=== PATIENT | female | born 1950 | race Caucasian/White ===

== ENCOUNTER → 2017-04-08 | Outpatient (CLI) | payer BC, MEDICARE ==
--- NOTE | 2017-04-09 10:46 | WWHP ---
DATE OF SERVICE: 04/08/2017 CHIEF COMPLAINT: The patient is here for her routine gynecologic exam and mammogram. HPI: This is a 66-year-old G2, P2 with an LMP of 1997. The patient is without gynecologic complaints and denies any postmenopausal bleeding. PAST MEDICAL HISTORY: Chronic sinus problems and history of osteopenia status post 5 years use of Fosamax in the past. MEDICATIONS: None. Allergies to PENICILLIN and NICKEL. PAST SURGICAL HISTORY: Sinus surgery in the past and colonoscopy in 2013. 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 SOCIAL HISTORY: She denies tobacco and drug use and has about 8 alcohol containing drinks per week. She is and is not seeing anybody at this time. 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 She has 2 grandchildren that live close to her. FAMILY HISTORY: Unchanged form the 2016 H&P. REVIEW OF SYSTEMS: She has gained about 5 pounds over the last year. She denies respiratory, cardiac or GI problems. She denies maltreatment. She did fall off of a ladder earlier in the year without any significant injury. She denies any other falls. : She denies any significant problems with urinary leakage. PHYSICAL EXAM: Blood pressure 133/76. Height 5 feet 7 inches. Weight 137 pounds. Temperature 98.1. Pulse 67. This is a well-developed, well-nourished white female who is alert and oriented x3 in no acute distress. HEENT is within normal limits. NECK: Supple without mass or thyromegaly. CHEST AND LUNGS: Clear to auscultation. HEART: Regular rate and rhythm. Breasts are without mass or discharge. Axillary exam is negative for adenopathy. BACK: Negative for CVA tenderness. ABDOMEN: Soft, nontender without palpable masses. PELVIC EXAM: External genitalia reveals moderate atrophy without lesions. Cervix and vagina reveals mild to moderate atrophy without lesions. There is no evidence of prolapse. The uterus is mid position, nongravid size and nontender. There are no palpable adnexal masses or tenderness. Rectovaginal exam is negative for mass or tenderness and is negative for occult blood. EXTREMITIES: Nontender. IMPRESSION: 1. A 66-year-old menopausal female with normal gynecologic exam. 2. History of osteopenia, status post 5 years use of Fosamax in the past. PLAN: 1. Pap smear was deferred since she had a normal one last year. 2. Self breast examination was discussed. 3. Mammogram will be done today. 4. Osteoporosis prevention was discussed. We have discussed getting adequate amounts of calcium, vitamin D, and regular exercise. I have recommended bone density screening and she would like to do this next year. 5. I have recommended flu shots in the fall. She states she does not get flu shots and is not interested in them. 6. She will return in one year. KEELEY
--- NOTE | 2017-04-09 11:19 | MM ---
Reason for exam: screening (asymptomatic). Last mammogram was performed 1 year ago. History: Patient is postmenopausal. Family history of breast cancer in aunt at age 55. Took hormonal contraceptives for 5 years beginning at age 19. Physical Findings: A clinical breast exam by your physician is recommended on an annual basis and results should be correlated with mammographic findings. MG 3D Screening Mammo W/Cad Bilateral CC and MLO view(s) were taken. Prior study comparison: April 02, 2016, bilateral MG screening mammo w CAD. May 23, 2013, bilateral digital screening mammo w/CAD. The breast tissue is extremely dense which could obscure a lesion on mammography. No suspicious abnormality. No significant changes when compared with prior studies. ASSESSMENT: Negative, BI-RAD 1 RECOMMENDATION: Routine screening mammogram of both breasts in 1 year.
== END | disposition home or self-care (01) ==
LOC: WWCWWP 11:07
PROVIDERS: ATTEND Obstetrics & Gynecology
DX: Z12.31 Encounter for screening mammogram for malignant neoplasm of breast (principal)
CPT/HCPCS: 77063; G0202

== ENCOUNTER 2018-01-16 07:34 | Inpatient (IN) | payer BC, MEDICARE ==
[2018-01-16] MEDS ORDERED: SODIUM CHLORIDE 0.9% 500 ML IV ONE (08:17)
--- NOTE | 2018-01-16 08:25 | ED ---
ENT HPI - General Source: patient, RN notes reviewed Mode of arrival: ambulatory Limitations: no limitations <Ihsan Sanchez - Last Filed: 01/16/18 11:36> <Shemar Philip - Last Filed: 01/16/18 11:42> - General Chief complaint: ENT Stated complaint: Sore throat Time Seen by Provider: 01/16/18 08:08 - History of Present Illness Initial comments: This is a 67-year-old female sent emergency Department chief complaint sore throat. Patient states symptoms started on Thursday progressively getting worse. She states is painful difficult to swallow. She did tell the pain is in the right side. Patient went to urgent care today sent emergency from it for further evaluation to rule out peritonsillar abscess. Patient reports fever at home and here. Patient doesn't nausea vomiting diarrhea constipation. Denies any neck stiffness but she has had a headache. (Ihsan Sanchez) - Related Data Allergies Allergy/AdvReac Type Severity Reaction Status Date / Time Penicillins Allergy Rash/Hives Verified 01/16/18 07:44 Review of Systems ROS Other: All systems not noted in ROS Statement are negative. <Ihsan Sanchez - Last Filed: 01/16/18 11:36> ROS Other: All systems not noted in ROS Statement are negative. <Shemar Philip - Last Filed: 01/16/18 11:42> ROS Statement: Those systems with pertinent positive or pertinent negative responses have been documented in the HPI. Past Medical History Past Medical History: No Reported History History of Any Multi-Drug Resistant Organisms: None Reported Additional Past Surgical History / Comment(s): Sinus sugery Past Psychological History: No Psychological Hx Reported Smoking Status: Never smoker Past Alcohol Use History: Daily Past Drug Use History: None Reported <Ihsan Sanchez - Last Filed: 01/16/18 11:36> General Exam Limitations: no limitations General appearance: alert, in no apparent distress Head exam: Present: atraumatic, normocephalic, normal inspection Eye exam: Present: normal appearance, PERRL, EOMI. Absent: scleral icterus, conjunctival injection, periorbital swelling ENT exam: Present: mucous membranes moist, TM's normal bilaterally, normal external ear exam. Absent: normal oropharynx (Edematous right tonsillar region with moderate erythema) Neck exam: Present: normal inspection, full ROM, lymphadenopathy. Absent: tenderness, meningismus Respiratory exam: Present: normal lung sounds bilaterally. Absent: respiratory distress, wheezes, rales, rhonchi, stridor Cardiovascular Exam: Present: regular rate, normal rhythm, normal heart sounds. Absent: systolic murmur, diastolic murmur, rubs, gallop, clicks <Ihsan Sanchez - Last Filed: 01/16/18 11:36> Course <Ihsan Sanchez - Last Filed: 01/16/18 11:36> <Shemar Philip - Last Filed: 01/16/18 11:42> Vital Signs 01/16/18 01/16/18 07:41 10:32 Temperature 100.8 F H Pulse Rate 105 H 91 Respiratory 18 16 Rate Blood Pressure 180/81 144/77 O2 Sat by Pulse 98 100 Oximetry - Reevaluation(s) Reevaluation #1: 01/16/18 11:41 PA supervision I personally do the [id number] examination the patient and did evaluate the CAT scan and workup. Patient does have evidence of a right peritonsillar early abscess with right parapharyngeal edema mild mass effect on the upper airway she does have difficulty with some swallowing she had one episode of chills and developed a fever last night. Her white blood cell count is within normal limits. She is ALLERGIC to penicillins. I did discuss the case with Dr. King. Patient will be admitted place an IV clindamycin, maximum doses. The patient is in agreement with this. I do agree with the assessment and plan. (Shemar Philip) Medical Decision Making - Lab Data Result diagrams: 01/16/18 08:36 01/16/18 08:36 <Ihsan Sanchez - Last Filed: 01/16/18 11:36> - Lab Data Result diagrams: 01/16/18 08:36 01/16/18 08:36 <Shemar Philip - Last Filed: 01/16/18 11:42> - Medical Decision Making 59-year-old female presented for sore throat. Patient has a peritonsillar abscess. Patient was evaluated by Dr. Philip and case discussed with on-call ENT Dr. King. Patient was started on clindamycin as she has an ALLERGY to penicillin products. Patient will be admitted for further evaluation. (Ihsan Sanchez) - Lab Data Lab Results 01/16/18 01/16/18 01/16/18 Range/Units 08:36 08:36 08:36 WBC 8.7 (3.8-10.6) k/uL RBC 4.35 (3.80-5.40) m/uL Hgb 13.1 (11.4-16.0) gm/dL Hct 38.9 (34.0-46.0) % MCV 89.5 (80.0-100.0) fL MCH 30.1 (25.0-35.0) pg MCHC 33.7 (31.0-37.0) g/dL RDW 12.9 (11.5-15.5) % Plt Count 174 (150-450) k/uL Neutrophils % 82 % Lymphocytes % 9 % Monocytes % 7 % Eosinophils % 1 % Basophils % 0 % Neutrophils # 7.2 (1.3-7.7) k/uL Lymphocytes # 0.8 L (1.0-4.8) k/uL Monocytes # 0.6 (0-1.0) k/uL Eosinophils # 0.1 (0-0.7) k/uL Basophils # 0.0 (0-0.2) k/uL PT (9.0-12.0) sec INR (<1.2) APTT (22.0-30.0) sec Sodium 143 (137-145) mmol/L Potassium 4.0 (3.5-5.1) mmol/L Chloride 105 (98-107) mmol/L Carbon Dioxide 28 (22-30) mmol/L Anion Gap 10 mmol/L BUN 11 (7-17) mg/dL Creatinine 0.57 (0.52-1.04) mg/dL Est GFR (CKD-EPI)AfAm >90 (>60 ml/min/1.73 sqM) Est GFR (CKD-EPI)NonAf >90 (>60 ml/min/1.73 sqM) Glucose 109 H (74-99) mg/dL Plasma Lactic Acid August (0.7-2.0) mmol/L Calcium 9.4 (8.4-10.2) mg/dL Total Bilirubin 1.1 (0.2-1.3) mg/dL AST 29 (14-36) U/L ALT 32 (9-52) U/L Alkaline Phosphatase 70 (38-126) U/L Total Protein 6.9 (6.3-8.2) g/dL Albumin 4.3 (3.5-5.0) g/dL Heterophile Antibody Negative (Negative) Group A Strep Rapid (Negative) 01/16/18 01/16/18 01/16/18 Range/Units 08:36 08:36 08:36 WBC (3.8-10.6) k/uL RBC (3.80-5.40) m/uL Hgb (11.4-16.0) gm/dL Hct (34.0-46.0) % MCV (80.0-100.0) fL MCH (25.0-35.0) pg MCHC (31.0-37.0) g/dL RDW (11.5-15.5) % Plt Count (150-450) k/uL Neutrophils % % Lymphocytes % % Monocytes % % Eosinophils % % Basophils % % Neutrophils # (1.3-7.7) k/uL Lymphocytes # (1.0-4.8) k/uL Monocytes # (0-1.0) k/uL Eosinophils # (0-0.7) k/uL Basophils # (0-0.2) k/uL PT 10.2 (9.0-12.0) sec INR 1.0 (<1.2) APTT 23.3 (22.0-30.0) sec Sodium (137-145) mmol/L Potassium (3.5-5.1) mmol/L Chloride (98-107) mmol/L Carbon Dioxide (22-30) mmol/L Anion Gap mmol/L BUN (7-17) mg/dL Creatinine (0.52-1.04) mg/dL Est GFR (CKD-EPI)AfAm (>60 ml/min/1.73 sqM) Est GFR (CKD-EPI)NonAf (>60 ml/min/1.73 sqM) Glucose (74-99) mg/dL Plasma Lactic Acid August 0.9 (0.7-2.0) mmol/L Calcium (8.4-10.2) mg/dL Total Bilirubin (0.2-1.3) mg/dL AST (14-36) U/L ALT (9-52) U/L Alkaline Phosphatase (38-126) U/L Total Protein (6.3-8.2) g/dL Albumin (3.5-5.0) g/dL Heterophile Antibody (Negative) Group A Strep Rapid Negative (Negative) Disposition <Ihsan Sanchez - Last Filed: 01/16/18 11:36> <Shemar Philip - Last Filed: 01/16/18 11:42> Clinical Impression: Peritonsillar abscess, Febrile illness, acute Disposition: ADMITTED IP TO THIS HOSP Condition: Stable Referrals: None,Stated [Primary Care Provider] - 1-2 days
[2018-01-16 08:52] LABS: Basophils % (A) 0 %; Eosinophils # (A) 0.1 k/uL (0-0.7); Eosinophils % (A) 1 %; HCT 38.9 % (34.0-46.0); HGB 13.1 gm/dL (11.4-16.0); Lymphocytes # (A) 0.8 k/uL (1.0-4.8); Lymphocytes % (A) 9 %; MCH 30.1 pg (25.0-35.0); MCHC 33.7 g/dL (31.0-37.0); MCV 89.5 fL (80.0-100.0); Mean Platelet Volume 7.3; Monocytes # (A) 0.6 k/uL (0-1.0); Monocytes % (A) 7 %; Neutrophils # (A) 7.2 k/uL (1.3-7.7); Neutrophils % (A) 82 %; Platelet Count 174 k/uL (150-450); RBC 4.35 m/uL (3.80-5.40); RDW 12.9 % (11.5-15.5); WBC 8.7 k/uL (3.8-10.6)
[2018-01-16 08:59] LABS: Partial Thromboplastin Time 23.3 sec (22.0-30.0); Prothrombin Time 10.2 sec (9.0-12.0)
[2018-01-16 09:08] LABS: ALT 32 U/L (9-52); AST 29 U/L (14-36); Albumin 4.3 g/dL (3.5-5.0); Alkaline Phosphatase 70 U/L (38-126); Anion Gap 10 mmol/L; Blood Urea Nitrogen 11 mg/dL (7-17); Calcium 9.4 mg/dL (8.4-10.2); Carbon Dioxide 28 mmol/L (22-30); Chloride 105 mmol/L (98-107); Glucose 109 mg/dL (74-99); Sodium 143 mmol/L (137-145); Total Bilirubin 1.1 mg/dL (0.2-1.3); Total Protein 6.9 g/dL (6.3-8.2)
[2018-01-16] MEDS ORDERED: MORPHINE SULFATE 2 MG/ML SYRINGE IVP ONE (10:34)
[2018-01-16] MEDS ORDERED: ONDANSETRON 4 MG/2 ML VIAL IVP STA (10:34)
--- NOTE | 2018-01-16 10:35 | CT ---
EXAMINATION TYPE: CT soft tissue neck w con DATE OF EXAM: 01/16/2018 COMPARISON: NONE HISTORY: Patient complains of posterior throat pain and dysphagia CONTRAST: 100 ml Iso [address] of the neck was performed from the skull base through the lung apices. There is fullness and hypodensity at the level of the right tonsillar pillar with central decreased a ttenuation felt to reflect small developing abscess measuring 7 mm. Edema extends into the right para pharyngeal region. Mild mass effect upon the airway. AIRWAY: The supraglottic, glottic, and subglottic portions of the airway appear patent and free of mass. SALIVARY GLANDS: The submandibular and parotid glands are free of mass or inflammatory process. THYROID GLAND: No nodules or masses seen. LYMPH NODES: No adenopathy seen greater than 1cm. LUNG APICES: No nodule or mass is seen. OTHER: Vascular structures are patent. No significant degenerative change of the cervical spine. N o abscess seen. IMPRESSION: There is fullness and hypodensity at the level of the right tonsillar pillar with central decreased a ttenuation felt to reflect small developing abscess measuring 7 mm.
[2018-01-16] MEDS ORDERED: KETOROLAC 30 MG/ML 1 ML VIAL IVP STA (11:11)
[2018-01-16] MEDS ORDERED: CLINDAMYCIN 900 MG in DEXTROSE 5% IN WATER 50 ML IVPB STA ×2 (11:34)
[2018-01-16] MEDS ORDERED: MORPHINE SULFATE 2 MG/ML SYRINGE IV PRN (11:36)
[2018-01-16] MEDS ORDERED: ONDANSETRON 4 MG/2 ML VIAL IVP PRN (11:36)
[2018-01-16] MEDS ORDERED: HYDROcodone/APAP 5-325MG 1 EACH TAB PO PRN (11:36)
[2018-01-16] MEDS ORDERED: SODIUM CHLORIDE 0.9% 1,000 ML IV SCH (11:45)
[2018-01-16 12:44] VITALS: BMI 20.8
[2018-01-16] MEDS: KETOROLAC 30 MG/ML 1 ML VIAL IVP PRN ×2 (15:55→22:13)
[2018-01-16] MEDS: DEXAMETHASONE SOD PHOSPHATE 10 MG/ML 1 ML VIAL IV SCH ×2 (17:45→23:36)
[2018-01-16] MEDS: CLINDAMYCIN 600 MG in DEXTROSE 5% IN WATER 50 ML IVPB SCH ×4 (17:45→23:36)
[2018-01-16] MEDS: SODIUM CHLORIDE 0.9% 1,000 ML IV SCH (22:14)
[2018-01-16] MEDS: TEMAZEPAM 30 MG CAP PO PRN (22:19)
[2018-01-17] MEDS: SODIUM CHLORIDE 0.9% 1,000 ML IV SCH ×3 (03:31→20:44)
--- NOTE | 2018-01-17 04:15 | HP ---
HISTORY AND PHYSICAL DATE OF ADMISSION: January 16, 2018. CHIEF COMPLAINT: Severe sore throat on the right side. HISTORY OF PRESENT ILLNESS: This patient is a very pleasant 67-year-old female who presented to [facility] with a 3-day history of a moderate to severe sore throat on the right side. She denied any significant difficulty swallowing, but did admit to referred pain to her right ear. The patient is a nonsmoker. The patient states that on Thursday the 01/13/2018 she noticed that she had a slight sore throat in the morning. She felt that this would go away and therefore she did not seek any medical attention. The next day on , 01/14/2018, the sore throat appeared to get worse and she therefore was seen in one of the urgent care centers, who placed her on Motrin, but told her that she should go to the [facility] Emergency Room since she did not have a family doctor. The patient decided to wait an additional day and on the morning of on Thursday01/15/2018 she presented at [facility], complaining of a significant sore throat. The ER physician examined the patient and noted moderate swelling in the right peritonsillar area and subsequent CT scan noted a small 7 mm peritonsillar abscess. I was notified of the patient's symptoms and condition and recommended that the patient be admitted to my service with high-dose antibiotics and further treatment. The patient was therefore admitted to the hospital and placed on high doses of Cleocin 600 mg IV q.6 hours, Decadron, IV fluids and a regular diet. The patient states that she has no difficulty swallowing regular food stuff. PAST MEDICAL HISTORY: Past medical history reveals that she has an ALLERGY TO PENICILLIN. At home, she takes no medications. She has no previous history of recurrent sore throats or tonsillitis. She still has her tonsils present. REVIEW OF SYSTEMS: Completely unremarkable. PHYSICAL EXAMINATION: This patient is a very pleasant 67-year-old female who was alert and cooperative. HEENT examination patient is normocephalic. Tympanic membranes are normal. Middle ear spaces are free of any fluid or infection. Pupils are equal, round, reactive to light and accommodation. Extraocular movements are within normal limits. Intranasal examination reveals moderate septal deviation with compensatory hypertrophy of the inferior turbinates. Examination of oropharynx reveals slight suggestion of swelling in the right peritonsillar area. Not significantly tender to palpation with a tongue blade. The tonsil was not deviated to the midline. Palpation of the neck reveals some shotty anterior cervical lymph nodes which are nontender, but no evidence of any neck masses. Cranial nerves 2 through 12 and remainder of the head and neck exam are within normal limits. CHEST/CARDIOVASCULAR: Both lung hernandes are clear to percussion and auscultation. The patient is in regular sinus rhythm. S1 and S2 are present without evidence of any murmurs, S3s or S4. ABDOMEN: There is no evidence of any masses, megaly or tenderness. ABDOMEN: Soft. SKIN is unremarkable. Musculoskeletal and neurological and the remainder of the physical exam is essentially unremarkable. IMPRESSION: Right peritonsillar abscess. PLAN: The patient will be continued on high dose intravenous Cleocin, dexamethasone, IV fluid therapy. I will evaluate her on a daily basis and at this point, she may be able to go home on Thursday on oral antibiotics depending upon her symptoms, depending on her clinical condition at that time. MMODL / IJN: [id number] /
[2018-01-17] MEDS: CLINDAMYCIN 600 MG in DEXTROSE 5% IN WATER 50 ML IVPB SCH ×6 (05:30→17:41)
[2018-01-17] MEDS: DEXAMETHASONE SOD PHOSPHATE 10 MG/ML 1 ML VIAL IV SCH ×3 (05:31→17:41)
--- NOTE | 2018-01-17 17:19 | PN ---
PROGRESS NOTE DATE OF PROGRESS NOTE: 01/17/2018 SUBJECTIVE: Vital signs are stable. The patient grades her pain on a scale of 1-10 as a 1. She has used a minimal amount of Toradol and has only used [place] tablets once since her admission. She denies any difficulty swallowing and states that she feels markedly better with respect to her symptoms compared to when she originally came in. She still has a slight sore throat. She continues on the clindamycin and the dexamethasone. OBJECTIVE: HEENT: Patient is normocephalic. Examination of oropharynx reveals only minimal soft tissue swelling in the right peritonsillar area and no tenderness to palpation with the tongue blade. Palpation of the neck is negative and negative for any significant lymphadenopathy, although there are a few shotty anterior cervical nodes. These are mobile and nontender. Remainder of the head and neck examination and physical examination is unremarkable. ASSESSMENT: Resolving right peritonsillar abscess/peritonsillar cellulitis. PLAN: At this point, I feel that it will be okay to discharge the patient sometime tomorrow. I will be up to the floor after my morning surgeries and discharge the patient. At this point, I suspect that I will be able to discharge the patient probably by 130 tomorrow, but this may change depending on my surgical cases. We will send her home on Motrin 800 mg p.o. t.i.d. #30 and also on 10 days of Cleocin (clindamycin) 150 mg, 2 capsules p.o. t.i.d. with food until gone. I will also plan on seeing her in my office approximately 2 weeks after her discharge. MMODL / AGNESN: [id number] /
[2018-01-17] MEDS: TEMAZEPAM 30 MG CAP PO PRN (22:49)
[2018-01-18] MEDS: CLINDAMYCIN 600 MG in DEXTROSE 5% IN WATER 50 ML IVPB SCH ×6 (00:04→11:32)
[2018-01-18] MEDS: DEXAMETHASONE SOD PHOSPHATE 10 MG/ML 1 ML VIAL IV SCH (00:05)
[2018-01-18] MEDS: SODIUM CHLORIDE 0.9% 1,000 ML IV SCH ×2 (02:12→05:41)
[2018-01-18] MEDS: DEXAMETHASONE SOD PHOSPHATE 4 MG/ML 1 ML VIAL IV SCH ×2 (05:40→11:32)
[2018-01-18 08:13] VITALS: BP 122/75; PULSE 91; RESP 16; TEMP 99.2
--- NOTE | 2018-01-18 22:17 | DS ---
DISCHARGE SUMMARY DATE OF ADMISSION: 01/16/2018. DATE OF DISCHARGE: 01/18/2018. ADMITTING DIAGNOSIS: Left peritonsillar abscess. DISCHARGE DIAGNOSIS: Left peritonsillar abscess. OPERATIVE PROCEDURES: None. HISTORY OF THE PRESENT ILLNESS: This patient is a very pleasant 67-year-old female who developed a moderate sore throat on Thursday01/13/2018 in the morning. She felt it was nothing unusual; however, by the next day, 01/14/2018, it had gotten worse. Therefore she went to one of the urgent care centers, who advised her to go to [facility] Emergency Room. The only medication that they gave her was 1 or 2 Motrin 600 mg tablets. The patient decided to wait an additional day to see if the soreness on the right side of her throat would get better. She was not having any significant dysphagia, but she was having referred otalgia to the right ear. On Thursday01/16/2018 the patient presented at [facility] complaining of a severe sore throat. I was called by the emergency room physician and informed that the patient was complaining of severe right sore throat with right referred otalgia. In addition to this, he stated that on examination there was some mild swelling in the right peritonsillar area. A CT scan of the neck was performed and this showed a small 7 mm peritonsillar abscess. Because of the small size of the abscess, it was felt that this could be treated with aggressive antibiotic therapy, and therefore the patient was admitted to the hospital. She was placed on maximum dose of clindamycin, 600 mg IV q.i.d. and a regimen of dexamethasone. PAST MEDICAL HISTORY: ALLERGIES: PENICILLIN. She is not on any home medications. PHYSICAL EXAMINATION: HEENT: The patient is normocephalic. Tympanic membranes are normal. Middle ear spaces are free of any fluid or infection. Pupils equal, round and reactive to light and accommodation. Extraocular movements within normal limits. Intranasal examination reveals moderate to severe septal deviation. Examination of the oropharynx reveals slight swelling in the right peritonsillar area with only slight tenderness to palpation with the tongue blade. The remainder of the head and neck exam and chest and cardiovascular exacerbations were essentially unremarkable. HOSPITAL PROGRESS/STATUS: The patient's hospital status was one of progressive improvement of her symptoms. That is to say, during her entire time in the hospital she only took one [place] 7.5/325. The remaining time she was able to tolerate simply taking Toradol periodically. She did not have any difficulty swallowing and was able to tolerate a regular diet. Because of her improved symptoms, it was decided to discharge the patient on oral antibiotics. DISCHARGE STATUS: The patient is discharged at this time in good condition. She is only having a slight sore throat at this time and is not having any dysphagia whatsoever. In addition to this, the right referred otalgia has disappeared. The patient has been advised that she can resume normal activities, including work, exercise and a normal diet. She is discharged on the following medications: 1. Motrin 800 mg tablets 1 p.o. t.i.d. p.r.n. for pain #30. 2. Clindamycin capsules 150 mg two capsules p.o. t.i.d. until gone #60. I will see her on followup in my office approximately 2 weeks from her discharge and the RN caring for the patient will make the appointment at my office. I have advised the patient also that should she develop any loose stools, that is most likely due to the clindamycin, and she should stop this medication immediately and call my office. If she is not able to reach my office, then she should proceed to the emergency room, but under no circumstances, if she develops any diarrhea, should she take any more of the clindamycin. The patient is discharged at this time in satisfactory condition. TRESSA / FILIPE: [id number] /
== END 2018-01-18 14:20 | disposition home or self-care (01) | DRG 153 ==
LOC: EC 07:34 → 3SUR 11:40
PROVIDERS: ADMIT Otolaryngology; ATTEND Otolaryngology
DX: J36 Peritonsillar abscess (principal); Z88.0 Allergy status to penicillin
CPT/HCPCS: 36415; 70491; 80053; 83605; 85025; 85610; 85730; 86308; 87040; 87081; 87430; 96374; 96375; 99284

== ENCOUNTER → 2018-05-11 | Outpatient (CLI) | payer BC, MEDICARE ==
[2018-05-11 08:52] VITALS: BP 134/60; PULSE 76; TEMP 96.6; BMI 21.1
--- NOTE | 2018-05-11 09:31 | P.HPOB ---
History of Present Illness H&P Date: 05/11/18 Chief Complaint: The patient is here for her routine gynecologic exam and mammogram. This is a 67-year-old with an LMP of 1997. The patient is without gynecologic complaints and denies any postmenopausal bleeding. Review of Systems Weight has been stable. She denies respiratory, cardiac and G.I. problems. She denies maltreatment or problems with falling. : she can leak a small amount of urine when sneezing, but this has not been a big problem for her. Past Medical History Additional Past Medical History / Comment(s): Chronic sinus problems and history of osteopenia status post Fosamax use for 5 years in the past. 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 History of Any Multi-Drug Resistant Organisms: None Reported Additional Past Surgical History / Comment(s): Sinus sugery. Colonoscopy 2013. Past Psychological History: No Psychological Hx Reported Smoking Status: Never smoker Past Alcohol Use History: Daily (One glass of wine daily. 8 per week) Past Drug Use History: None Reported Additional History: She is . She plans on retiring on 06/16/2018. - Past Family History Father Family Medical History: Cancer (Renal), Renal Disease (Renal cancer) Additional Family Medical History / Comment(s): DIALYSIS Mother Family Medical History: Congestive Heart Failure (CHF) Additional Family Medical History / Comment(s): Maternal aunt had breast cancer. Medications and Allergies Home Medications Medication Instructions Recorded Confirmed Type No Known Home Medications 01/16/18 01/16/18 History Allergies Allergy/AdvReac Type Severity Reaction Status Date / Time Penicillins Allergy Rash/Hives Verified 05/11/18 08:46 Exam Vital Signs Temp Pulse BP 05/11/18 08:48 96.6 F L 76 134/60 Intake and Output 05/10/18 05/11/18 05/11/18 22:59 06:59 14:59 Other: Weight 61.235 kg Height 5'7", BMI 21.1. This is a well-developed well-nourished white female who is alert and oriented times 3 in no acute distress. HEENT: Within normal limits. NECK: Supple without mass or thyromegaly. CHEST AND LUNGS: Clear to auscultation. HEART: Regular rate and rhythm. BREASTS: Are without mass or discharge. AXILLARY EXAM: Negative for adenopathy. BACK: Negative for CVA tenderness. ABDOMEN: Soft, nontender, without palpable masses. PELVIC EXAM: Normal external genitalia with mild to moderate atrophy. Cervix and vagina appear normal with moderate atrophy. The cervix is somewhat stenotic secondary to atrophy. There is no unusual discharge. There is no evidence of prolapse. The uterus is midposition, nongravid size and nontender. There are no palpable adnexal masses or tenderness. RECTAL EXAM: rectovaginal exam is negative for mass or tenderness and is negative for occult blood. EXTREMITIES: Nontender. IMPRESSION: 1. 67-year-old menopausal female with normal gynecologic exam. 2. History of osteopenia, status post 5 years use of Fosamax in the past. PLAN: 1. Pap smear was performed. 2. Self breast awareness was discussed with the patient. 3. Screening mammogram will be done today. 4. Osteoporosis prevention was discussed. I have recommended repeating the bone density test since her last one was in 2010. The order slip for this was given to the patient and she states she will try to do this within the next month. 5. I have recommended flu shots in the fall. She states she does not get them , but will consider this. 6. She will return in one year.
--- NOTE | 2018-05-12 08:50 | MM ---
Reason for exam: screening (asymptomatic). Last mammogram was performed 1 year and 1 month ago. History: Patient is postmenopausal. Family history of breast cancer in aunt at age 55. Took hormonal contraceptives for 5 years beginning at age 19. Physical Findings: A clinical breast exam by your physician is recommended on an annual basis and results should be correlated with mammographic findings. MG 3D Screening Mammo W/Cad Bilateral CC and MLO view(s) were taken. Prior study comparison: April 08, 2017, bilateral MG 3d screening mammo w/cad. April 02, 2016, bilateral MG screening mammo w CAD. The breast tissue is extremely dense which could obscure a lesion on mammography. Stable benign calcifications. There is no discrete abnormality. No significant changes when compared with prior studies. ASSESSMENT: Benign, BI-RAD 2 RECOMMENDATION: Routine screening mammogram of both breasts in 1 year.
== END | disposition home or self-care (01) ==
LOC: WWCWWP 08:34
PROVIDERS: ATTEND Obstetrics & Gynecology
DX: Z12.31 Encounter for screening mammogram for malignant neoplasm of breast (principal)
CPT/HCPCS: 77063; 77067

== ENCOUNTER → 2018-06-08 | Outpatient (CLI) | payer BC, MEDICARE ==
--- NOTE | 2018-06-08 15:08 | BD ---
EXAMINATION TYPE: Axial Bone Density DATE OF EXAM: 06/08/2018 COMPARISON: NONE CLINICAL HISTORY: Postmenopausal female. Osteoporosis screening. Height: 5 FT 5 IN Weight: 132 FRAX RISK QUESTIONS: RISK FACTORS HISTORY OF: Active: YES Postmenopausal woman: AGE 47 Lost more than 2 inches in height since high school: YES MEDICATIONS: Additional Medications: NONE Additional History: EXAM MEASUREMENTS: Bone mineral densitometry was performed using the [employer] System. Bone mineral density as measured about the Lumbar spine is: ----- L1-L4(G/cm2): 0.951 T Score Values are as follows: ----- L2: -2.9 ----- L3: -1.8 ----- L4: -0.9 ----- L1-L4: -1.9 Bone mineral density has: DECREASED -4.4 % since study of: 2004 Bone mineral density about the R hip (g/cm2): 0.716 Bone mineral density about the L hip (g/cm2): 0.752 T Score values are as follows: -----R Neck: -2.3 -----L Neck: -2.1 -----R Total: -1.9 -----L Total: -1.7 Bone mineral density has: DECREASED -0.1 % since study of: 2004 IMPRESSION: Osteopenia (T Score between -2.5 and -1). There is slightly increased risk of fracture and the patient may be considered for treatment. Re-Screen 2-5 years. NOTE: T-SCORE=SD OF THE YOUNG ADULT MEAN.
--- NOTE | 2018-06-09 14:03 | P.PN ---
Progress Note - Text Progress Note Date: 06/09/18 OUTPATIENT FOLLOW-UP NOTE TEST(S)/RESULTS: bone density test done on 06/08/2018 shows osteopenia with only mild changes from the 2005 bone density test. METHOD OF NOTIFICATION: the patient was notified by phone. PATIENT COMMENTS: she understands the results. DIAGNOSIS: osteopenia status post 5 years use of Fosamax in the past. DISCUSSION: the patient also had a bone density test at [facility] in 2010. PLAN: continue getting adequate calcium, vitamin D and regular exercise. We will plan on repeating bone density testing in 2 to 3 years.
== END ==
LOC: RADBDWWP 13:04
PROVIDERS: ATTEND Obstetrics & Gynecology
DX: Z13.820 Encounter for screening for osteoporosis (principal); M85.80 Other specified disorders of bone density and structure, unspecified site; Z78.0 Asymptomatic menopausal state
CPT/HCPCS: 77080

== ENCOUNTER → 2019-06-14 | Outpatient (CLI) | payer MEDICARE, OTHER ==
--- NOTE | 2019-06-15 19:51 | MR ---
EXAMINATION TYPE: MR brain wo/w con DATE OF EXAM: 06/15/2019 COMPARISON: None HISTORY: Visual disturbances, seeing flashes TECHNIQUE: Multiplanar, multisequence images of the brain and brainstem is performed without and with IV contras t, utilizing 6 mL intravenous Gadavist . FINDINGS: There is mild cerebral cortical atrophy. There is no mass effect nor midline shift. Diffusion images show no evidence of a cortical infarct. On the T2 and FLAIR images there are some patchy areas of sli ght increased signal in the white matter around the lateral ventricles and at the moyer-white matter j unction of both cerebral hemispheres. These are seen more in the right parietal lobe. Total number is less than 15 and most of these measure less than 5 mm. The corpus callosum is intact. Brainstem is intact. There is no evidence of posterior fossa mass. There is normal contrast opacification of the venous sinuses. There is no pathologic enhancement. Jaquelin la turcica appears normal. Optic chiasm appears normal. Pituitary stalk is in the midline. IMPRESSION: There are multiple small areas of white matter increased signal in both cerebral hemisphe res that are nonspecific and could relate to chronic small vessel ischemia or demyelinating disease. No evidence of cortical infarct.
== END | disposition home or self-care (01) ==
LOC: RADMRIMAIN 13:28
PROVIDERS: ATTEND Nurse Practitioner Family
DX: R90.89 Other abnormal findings on diagnostic imaging of central nervous system (principal); H53.8 Other visual disturbances
CPT/HCPCS: 70553; A9585

== ENCOUNTER → 2019-06-14 | Outpatient (CLI) | payer MEDICARE, OTHER ==
[2019-06-14 12:42] VITALS: BP 154/88; PULSE 75; RESP 18; TEMP 98.3; BMI 21.2
--- NOTE | 2019-06-14 13:18 | P.HPOB ---
History of Present Illness H&P Date: 06/14/19 Chief Complaint: The patient is here for her routine gynecologic exam and ma mmogram. This is a 68-year-old with an LMP of 1997. The patient is without gynecologic complaints. Review of Systems Weight has been stable. She denies respiratory, cardiac and G.I. problems. She denies maltreatment or problems with falling. : She occasionally has small leakage with coughing. This is not a major problem for her. Past Medical History Past Medical History: No Reported History Additional Past Medical History / Comment(s): Chronic sinus problems and history of osteopenia status post Fosamax use for 5 years in the past. 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 History of Any Multi-Drug Resistant Organisms: None Reported Additional Past Surgical History / Comment(s): Sinus sugery. Colonoscopy 2013(next after 10yrs). Past Psychological History: No Psychological Hx Reported Smoking Status: Never smoker Past Alcohol Use History: Daily (2 glasses of wine per day) Past Drug Use History: None Reported Additional History: She is . She retired in 2017. She watches what of her grandchildren 2 days a week. - Past Family History Father Family Medical History: Cancer, Renal Disease Additional Family Medical History / Comment(s): Renal cancer. DIALYSIS Mother Family Medical History: Congestive Heart Failure (CHF) Additional Family Medical History / Comment(s): Maternal aunt had breast cancer. Medications and Allergies Home Medications Medication Instructions Recorded Confirmed Type Eye Vitamins 1 tab PO DAILY 06/14/19 06/14/19 History Multivitamin [Multivitamins Adult 1 each PO DAILY 06/14/19 06/14/19 History Gummies] Allergies Allergy/AdvReac Type Severity Reaction Status Date / Time Penicillins Allergy Rash/Hives Verified 06/14/19 12:42 Exam Vital Signs Temp Pulse Resp BP Pulse Ox 06/14/19 12:35 98.3 F 75 18 154/88 99 Intake and Output 06/13/19 06/14/19 06/14/19 22:59 06:59 14:59 Other: Weight 61.689 kg Height 5 feet 7 inches, weight 136 pounds, BMI 21.3. This is a well-developed well-nourished white female who is alert and oriented times 3 in no acute distress. HEENT: Within normal limits. NECK: Supple without mass or thyromegaly. CHEST AND LUNGS: Clear to auscultation. HEART: Regular rate and rhythm. BREASTS: Are without mass or discharge. AXILLARY EXAM: Negative for adenopathy. BACK: Negative for CVA tenderness. ABDOMEN: Soft, nontender, without palpable masses. PELVIC EXAM: Normal external genitalia with mild atrophy. Cervix and vagina appear normal mild atrophy. There is no unusual discharge. There is no evidence of prolapse. The uterus is midposition, nongravid size and nontender. There are no palpable adnexal masses or tenderness. RECTAL EXAM: Rectovaginal exam is negative for mass or tenderness and is negative for occult blood. EXTREMITIES: Nontender. IMPRESSION: 1. 68-year-old menopausal female with normal gynecologic exam. 2. History of osteopenia status post 5 years use of Fosamax in the past. 3. Elevated blood pressure. PLAN: 1. Pap smear was deferred since she had a normal one on 05/11/2018. 2. Self breast awareness was discussed with the patient. 3. Screening mammogram will be done today. 4. Osteoporosis prevention was discussed. I have stressed the importance of adequate calcium, vitamin D and regular exercise. Recommended amounts of calcium and vitamin D were also discussed. We'll plan on repeating bone density testing in 1-2 years. 5. She does not get flu shots in the fall. I have asked her to reconsider this. 6. I have recommended that she check her blood pressure on her own on a regular basis. She was instructed to follow up with her primary caregiver for blood pressure elevations. 7. The patient was advised to return in 1-2 years for her well woman examination.
--- NOTE | 2019-06-17 10:57 | MM ---
Reason for exam: screening (asymptomatic). Last mammogram was performed 1 year and 1 month ago. History: Patient is postmenopausal. Family history of breast cancer in aunt at age 55. Took hormonal contraceptives for 5 years beginning at age 19. Physical Findings: A clinical breast exam by your physician is recommended on an annual basis and results should be correlated with mammographic findings. MG 3D Screening Mammo W/Cad Bilateral CC and MLO view(s) were taken. Prior study comparison: May 11, 2018, bilateral MG 3d screening mammo w/cad. April 08, 2017, bilateral MG 3d screening mammo w/cad. The breast tissue is extremely dense which could obscure a lesion on mammography. No significant changes when compared with prior studies. ASSESSMENT: Benign, BI-RAD 2 RECOMMENDATION: Routine screening mammogram of both breasts in 1 year.
== END ==
LOC: WWCWWP 12:08
PROVIDERS: ATTEND Obstetrics & Gynecology
DX: Z12.31 Encounter for screening mammogram for malignant neoplasm of breast (principal)
CPT/HCPCS: 77063; 77067

== ENCOUNTER → 2019-10-06 | Outpatient (CLI) | payer MEDICARE, OTHER ==
--- NOTE | 2019-10-06 14:10 | US ---
EXAMINATION TYPE: US venous doppler duplex LE RT DATE OF EXAM: 10/06/2019 10:51 AM COMPARISON: NONE CLINICAL HISTORY: 69-year-old female M79.661 pain. SIDE PERFORMED: Right TECHNIQUE: The lower extremity deep venous system is examined utilizing real time linear array sonog roma with graded compression, doppler sonography and color-flow sonography. FINDINGS: VESSELS IMAGED: External Iliac Vein (EIV) Common Femoral Vein Deep Femoral Vein Greater Saphenous Vein * Femoral Vein Popliteal Vein Small Saphenous Vein * Proximal Calf Veins (* superficial vessels) Right Leg: Negative for DVT IMPRESSION: No evidence for DVT within the right lower extremity imaged from the groin to the upper calf.
== END | disposition home or self-care (01) ==
LOC: RADUSWWP 10:16
PROVIDERS: ATTEND Family Medicine
DX: M79.661 Pain in right lower leg (principal)

== ENCOUNTER → 2020-08-08 | Outpatient (CLI) | payer MEDICARE ==
[2020-08-08 11:28] VITALS: BP 168/110; PULSE 68; RESP 18; TEMP 98
--- NOTE | 2020-08-08 13:35 | P.HPOB ---
History of Present Illness H&P Date: 08/08/20 Chief Complaint: The patient is here for her routine gynecologic exam and ma mmogram. This is a 69-year-old with an LMP of 1997. The patient is without gynecologic complaints. Review of Systems She has gained about 10 pounds over the last year. She denies respiratory, cardiac and G.I. problems. She denies maltreatment or problems with falling. : She does experience occasional small urinary leakage with coughing or sneezing. Musculoskeletal: She has been expressing some problems with her left hip and plans to see somebody for this. Past Medical History Past Medical History: No Reported History Additional Past Medical History / Comment(s): Chronic sinus problems and history of osteopenia status post Fosamax use for 5 years in the past. 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 History of Any Multi-Drug Resistant Organisms: None Reported Additional Past Surgical History / Comment(s): Sinus sugery. Colonoscopy 2013(next after 10yrs). Past Psychological History: No Psychological Hx Reported Smoking Status: Never smoker Past Alcohol Use History: Daily (2 glasses of wine per day) Past Drug Use History: None Reported Additional History: She is . She retired in 2018. She has 3 grandchildren and she watches one on a regular basis. - Past Family History Father Family Medical History: Cancer, Renal Disease Additional Family Medical History / Comment(s): Renal cancer. DIALYSIS Mother Family Medical History: Congestive Heart Failure (CHF) Additional Family Medical History / Comment(s): Maternal aunt had breast cancer. Medications and Allergies Home Medications Medication Instructions Recorded Confirmed Type Multivitamin [Multivitamins Adult 1 each PO DAILY 06/14/19 08/08/20 History Gummies] Lysine 500 mg PO DAILY 08/08/20 08/08/20 History Allergies Allergy/AdvReac Type Severity Reaction Status Date / Time Penicillins Allergy Rash/Hives Verified 08/08/20 11:22 nickel AdvReac Unknown Unverified 08/08/20 11:22 Exam Vital Signs Temp Pulse Resp BP Pulse Ox 08/08/20 11:22 98.0 F 68 18 168/110 100 Intake and Output 08/07/20 08/08/20 08/08/20 22:59 06:59 14:59 Other: Weight 66.224 kg Repeat blood pressure 154/82. Height 5 feet 6 inches, weight 146 pounds, BMI 23.6. This is a well-developed well-nourished white female who is alert and oriented times 3 in no acute distress. HEENT: Within normal limits. NECK: Supple without mass or thyromegaly. CHEST AND LUNGS: Clear to auscultation. HEART: Regular rate and rhythm. BREASTS: Are without mass or discharge. AXILLARY EXAM: Negative for adenopathy. BACK: Negative for CVA tenderness. ABDOMEN: Soft, nontender, without palpable masses. PELVIC EXAM: Normal external genitalia with mild to moderate atrophy. Cervix and vagina appear normal with mild to moderate atrophy. There is no unusual discharge. There is no evidence of prolapse. The uterus is midposition, nongravid size and nontender. There are no palpable adnexal masses or tenderness. RECTAL EXAM: Rectovaginal exam is negative for mass or tenderness and is negative for occult blood. EXTREMITIES: Nontender. IMPRESSION: 1. 69-year-old menopausal female with normal gynecologic exam. 2. History of osteopenia status post 5 years use of Fosamax. 3. Elevated blood pressure with no history of hypertension. PLAN: 1. Pap smear cotest was performed. If this is negative, we will consider discontinuing Pap smears. 2. Self breast awareness was discussed with the patient. 3. Screening mammogram was done today. 4. We have discussed her elevated blood pressure. I have strongly recommended that she establish with a primary care physician very soon since she currently does not have a primary care physician. I have recommended that she check her blood pressures on her own on a regular basis and follow-up with a primary care physician for blood pressure elevations. We have discussed how uncontrolled hypertension can increase the risk of stroke and heart attack. 5. She did receive a TDaP vaccination last year. 6. She did not receive her flu shot this past fall. She states she does not get flu shots. I have recommended that she reconsider getting a flu shot and I have recommended that she also consider getting a Covid vaccination when they become available. 7.Osteoporosis prevention was discussed. I have stressed the importance of adequate calcium, vitamin D and regular exercise. Recommended amounts of calcium and vitamin D were also discussed. I have recommended that she repeat her bone density tests since her last one was in May 2018. She states she will plan on doing this next year. 8. She was advised to return in one year for her annual well woman exam.
--- NOTE | 2020-08-13 09:19 | MM ---
Reason for exam: screening (asymptomatic). Last mammogram was performed 1 year and 2 months ago. History: Patient is postmenopausal. Family history of breast cancer in aunt at age 55. Took hormonal contraceptives for 5 years beginning at age 19. Physical Findings: A clinical breast exam by your physician is recommended on an annual basis and results should be correlated with mammographic findings. MG 3D Screening Mammo W/Cad Bilateral CC and MLO view(s) were taken. Prior study comparison: June 14, 2019, bilateral MG 3d screening mammo w/cad. May 11, 2018, bilateral MG 3d screening mammo w/cad. The breast tissue is heterogeneously dense. This may lower the sensitivity of mammography. No significant changes when compared with prior studies. ASSESSMENT: Negative, BI-RAD 1 RECOMMENDATION: Routine screening mammogram of both breasts in 1 year.
--- NOTE | 2020-08-15 09:46 | P.PN ---
Progress Note - Text Progress Note Date: 08/15/20 OUTPATIENT FOLLOW-UP NOTE TEST(S)/RESULTS: Test results from 08/08/2020 include negative Pap smear cotest and benign mammogram. METHOD OF NOTIFICATION: The patient was notified by phone. PATIENT COMMENTS: Patient is happy to hear these results. DIAGNOSIS: Negative Pap smear cotest and benign mammogram. DISCUSSION: The patient has had 3 negative Pap smears in the last 10 years and has no history of Pap smear abnormalities. Pap smears will be discontinued. PLAN: The patient was advised to return in 1-2 years for her well woman examination. She understands that I am still recommending pelvic examinations even though we will not need to do Pap smears anymore.
== END | disposition home or self-care (01) ==
LOC: WWCWWP 10:28
PROVIDERS: ATTEND Obstetrics & Gynecology
DX: Z12.31 Encounter for screening mammogram for malignant neoplasm of breast (principal)
CPT/HCPCS: 77063; 77067

== ENCOUNTER → 2021-09-17 | Outpatient (CLI) | payer MEDICARE ==
--- NOTE | 2021-09-17 22:47 | BD ---
EXAMINATION TYPE: Axial Bone Density DATE OF EXAM: 09/17/2021 COMPARISON: Prior DEXA bone scan 2018. CLINICAL HISTORY: Postmenopausal female. Height: 5 FT 6 IN Weight: 139 FRAX RISK QUESTIONS: Alcohol (3 or more units per day): NO Family History (Parent hip fracture): YES Glucocorticoids (More than 3mos): NO (Ex: prednisone, prednisolone, methylprednisolone, dexamethasone, and hydrocortisone). History of Fracture in Adulthood: NO Secondary Osteoporosis: 1. Type 1 Diabetes: NO 2. Hyperthyroidism: NO 3. Menopause before 45: NO 4. Malnutrition: NO 5. Chronic liver disease: NO Rheumatoid Arthritis: NO Current Tobacco Use: NO RISK FACTORS HISTORY OF: Surgery to Spine/Hip(right/left)/Wrist (right/left): NO Family History of Osteoporosis: NO Active: YES Diet low in dairy products/other sources of calcium: NO Postmenopausal woman: YES Take estrogen and/or progesterone medications: NO Lost more than 2 inches in height since high school: NO Frequent falls: NO Poor Health: GOOD Hyperparathyroidism: NO Adrenal Insufficiency: NO MEDICATIONS: Additional Medications: NONE Additional History: EXAM MEASUREMENTS: Bone mineral densitometry was performed using the [employer] System. Bone mineral density as measured about the Lumbar spine is: ----- L1-L4(G/cm2): 0.911 T Score Values are as follows: ------ L1: -2.8 ----- L2: -3.2 ----- L3: -2.1 ----- L4: -1.0 ----- L1-L4: -2.2 Bone mineral density has: DECREASED -4.0 % since study of: 2018 Bone mineral density about the R hip (g/cm2): 0.746 Bone mineral density about the L hip (g/cm2): 0.884 T Score values are as follows: -----R Neck: -2.1 -----L Neck: -1.1 -----R Total: -1.9 -----L Total: -1.7 Bone mineral density has: DECREASED -0.4 % since study of: 2018 IMPRESSION: Osteoporosis (T Score less than -2.5) remains present at 2 consecutive levels in the lumbar spine. There is increased fracture risk and therapy is usually indicated based on age. Re-Screen 1-2 years. NOTE: T-SCORE=SD OF THE YOUNG ADULT MEAN.
--- NOTE | 2021-09-18 12:49 | MM ---
Reason for exam: screening (asymptomatic). Last mammogram was performed 1 year and 1 month ago. History: Patient is postmenopausal. Family history of breast cancer in aunt at age 55. Took hormonal contraceptives for 5 years beginning at age 19. Physical Findings: A clinical breast exam by your physician is recommended on an annual basis and results should be correlated with mammographic findings. MG 3D Screening Mammo W/Cad Bilateral CC and MLO view(s) were taken. Prior study comparison: August 08, 2020, bilateral MG 3d screening mammo w/cad. June 14, 2019, bilateral MG 3d screening mammo w/cad. The breast tissue is heterogeneously dense. This may lower the sensitivity of mammography. There are benign appearing round calcifications bilaterally. There is no discrete abnormality. ASSESSMENT: Benign, BI-RAD 2 RECOMMENDATION: Routine screening mammogram of both breasts in 1 year.
== END | disposition home or self-care (01) ==
LOC: RADMAMWWP 14:38
PROVIDERS: ATTEND Family Medicine
DX: Z12.31 Encounter for screening mammogram for malignant neoplasm of breast (principal); M81.0 Age-related osteoporosis without current pathological fracture; Z78.0 Asymptomatic menopausal state; Z80.3 Family history of malignant neoplasm of breast
CPT/HCPCS: 77063; 77067; 77080

== ENCOUNTER → 2022-01-24 | Outpatient (CLI) | payer MEDICARE ==
[2022-01-24 14:35] LABS: Partial Thromboplastin Time 25.4 sec (22.0-30.0); Prothrombin Time 10.9 sec (9.0-12.0)
[2022-01-24 18:39] LABS: African American GFR (CKD) 100.2 (60.0-200.0); Albumin 4.7 g/dL (3.8-4.9); Albumin/Globulin Ratio 2.16 (1.60-3.17); Anion Gap 11.6 mmol/L (10.00-18.00); BUN/Creat Ratio 15.41 Ratio (12.00-20.00); Blood Urea Nitrogen 10.8 mg/dL (9.0-27.0); Calcium 9.8 mg/dL (8.7-10.3); Carbon Dioxide 26.9 mmol/L (20.0-27.5); Globulin 2.2 g/dL (1.6-3.3); Non-African American GFR(CKD) 86.4 (60.0-200.0); Potassium 4.4 mmol/L (3.5-5.5); Total Bilirubin 0.5 mg/dL (0.30-1.20); Total Protein 6.9 g/dL (6.2-8.2)
[2022-01-24 18:50] LABS: HCT 38.9 % (37.2-46.3); HGB 13.2 g/dL (12.0-15.0); MCH 30.3 pg (27.0-32.0); MCHC 33.9 g/dL (32.0-37.0); MCV 89.2 fL (80.0-97.0); Mean Platelet Volume 10.3 fL (9.5-12.2); NRBC Per 100 WBC 0 /100 WBCS (0.0-0.0); Platelet Count 270 X 10*3/uL (140-440); RBC 4.36 X 10*6/uL (4.10-5.20); RDW 12.1 % (11.5-14.5); WBC 4.65 X 10*3/uL (4.50-10.00)
[2022-01-24 20:21] LABS: Appearance,Urine Clear (Clear); Bilirubin,Urine Negative (Negative); Blood,Urine Negative (Negative); Color,Urine Yellow (Yellow); Ketones,Urine Negative (Negative); Nitrite,Urine Negative (Negative); Specific Gravity,Urine 1.009 (1.001-1.030); Urobilinogen,Urine 0.2 (0.2,1.0)
== END | disposition home or self-care (01) ==
LOC: LABPAT 12:04
PROVIDERS: ATTEND Orthopaedic Surgery
DX: Z01.818 Encounter for other preprocedural examination (principal); M16.12 Unilateral primary osteoarthritis, left hip
CPT/HCPCS: 36415; 80053; 81003; 85027; 85610; 85730; 87070; 93005

== ENCOUNTER 2022-02-05 14:25 | Day surgery (SDC) | payer MEDICARE ==
[2022-02-03 13:16] VITALS: BMI 21.3
[~2022-02-05 14:25] MED LIST: ACETAMINOPHEN TAB 500 MG TAB PO PRN; DEXAMETHASONE SOD PHOSPHATE 10 MG/ML 1 ML VIAL IV PRN; DEXAMETHASONE SOD PHOSPHATE 4 MG/ML 1 ML VIAL IV ONE; DOCUSATE 100 MG CAP PO PRN; FAMOTIDINE 20 MG/2 ML VIAL IVP PRN; HYDROmorphone 0.5 MG/0.5 ML SYRINGE IVP PRN; KETOROLAC 15 MG/ML 1 ML VIAL IVP PRN; LIDOCAINE 1% (10MG/ML) FOR IV START INTRADERMA PRN; ONDANSETRON 4 MG/2 ML VIAL IVP ONE; ONDANSETRON 4 MG/2 ML VIAL IVP PRN; ROPIVACAINE/EPI/CLONIDINE/KET 50 ML SYRINGE MISCELLANE PRN; TRANEXAMIC ACID IN NACL,ISO-OS 1,000 MG in SALINE 1 100ML.BAG IVPB PRN; oxyCODONE ER 10 MG TAB.ER.12H PO PRN
[2022-02-05] MEDS: LACTATED RINGERS 1,000 ML IV SCH (14:32)
--- NOTE | 2022-02-05 14:52 | P.HPOR ---
History of Present Illness H&P Date: 02/05/22 The patient is a very pleasant 71-year-old female with long-standing history of left hip pain. She has failed nonsurgical treatment and presents today for an elective total hip replacement Past Medical History Past Medical History: Osteoarthritis (OA) Additional Past Medical History / Comment(s): Chronic sinus problems and history of osteopenia, History of Any Multi-Drug Resistant Organisms: None Reported Additional Past Surgical History / Comment(s): Sinus sugery. Colonoscopy 2013(next after 10yrs). Past Anesthesia/Blood Transfusion Reactions: No Reported Reaction Smoking Status: Never smoker - Past Family History Father Family Medical History: Cancer, Renal Disease Additional Family Medical History / Comment(s): Renal cancer. DIALYSIS Mother Family Medical History: Congestive Heart Failure (CHF) Additional Family Medical History / Comment(s): Maternal aunt had breast cancer. Medications and Allergies Home Medications Medication Instructions Recorded Confirmed Type guaiFENesin-Coden 100-10MG/5ML 10 ml PO HS PRN 02/03/22 02/05/22 History [Liamsin AC] Allergies Allergy/AdvReac Type Severity Reaction Status Date / Time Penicillins Allergy Rash/Hives Verified 02/05/22 14:38 nickel AdvReac Rash/Hives Verified 02/05/22 14:38 Physical Examination The patient is in no apparent distress and is resting comfortably on her bed. She can just nonlabored breathing symmetric chest expansion. A focused exam of the left leg shows no scars or other lesions over the anterior aspect of the hip. Her left leg is neurovascularly intact. Assessment and Plan Assessment: Patient is a 71-year-old female with symptomatic left hip osteoarthritis Plan: The patient will remain nothing by mouth and the plan is to proceed with an elective total hip replacement on the left.
[2022-02-05] MEDS ORDERED: GLYCOPYRROLATE 0.2 MG/ML 2 ML VIAL ONE (15:04)
[2022-02-05] MEDS ORDERED: NEOSTIGMINE 1 MG/ML 10 ML VIAL ONE (15:04)
[2022-02-05] MEDS ORDERED: MIDAZOLAM 2 MG/2 ML VIAL ONE (15:04)
[2022-02-05] MEDS ORDERED: ROCURONIUM 10 MG/ML (5 ML VIAL) IV ONE (15:04)
[2022-02-05] MEDS ORDERED: fentaNYL (PF) 50 MCG/ML 2 ML AMP ONE (15:04)
[2022-02-05] MEDS ORDERED: LIDOCAINE 2% INJ 20 MG/ML (2 ML VIAL) ONE (15:04)
[2022-02-05] MEDS ORDERED: SUCCINYLCHOLINE CHLORIDE 100 MG/5 ML SYR IV ONE (15:04)
[2022-02-05] MEDS ORDERED: PROPOFOL 10 MG/ML 20 ML VIAL IV ONE (15:04)
[2022-02-05] MEDS ORDERED: TRANEXAMIC ACID IN NACL,ISO-OS 1,000 MG/100 ML BAG ONE (15:04)
[2022-02-05] MEDS ORDERED: PHENYLEPHRINE-0.9% NACL SYG 1,000 MCG/10 ML SYRINGE ONE (15:04)
[2022-02-05] MEDS ORDERED: HYDROmorphone (PF) 1 MG/ML ONE (15:04)
[2022-02-05] MEDS ORDERED: LACTATED RINGERS 1,000 ML IV ONE (16:00)
[2022-02-05] MEDS ORDERED: ONDANSETRON 4 MG/2 ML VIAL IVP PRN (17:34)
[2022-02-05] MEDS ORDERED: hydrOXYzine pamoate 25 MG CAP PO PRN (17:34)
[2022-02-05] MEDS ORDERED: HYDROcodone/APAP 5-325MG 1 EACH TAB PO PRN (17:34)
[2022-02-05] MEDS ORDERED: NALOXONE 0.4 MG/ML 1 ML VIAL IV PRN (17:34)
[2022-02-05] MEDS ORDERED: HYDROmorphone 0.5 MG/0.5 ML SYRINGE IVP PRN ×3 (17:34)
--- NOTE | 2022-02-05 17:35 | P.OP ---
Date of Procedure: 02/05/22 Preoperative Diagnosis: 1. Severe left hip osteoarthritis 2. Osteoporosis Postoperative Diagnosis: Same Procedure(s) Performed: Left direct anterior total hip replacement Implants: 1. Yoli Trident II Acetabular Cup, Size #50 2. [place] Accolade C Size #5 Femoral Stem, High Offset 3. Biolox Delta 36 mm femoral head, +0 neck Anesthesia: GETA Surgeon: Jayden Ramirez Clinical Laboratory Assistant #1: Demetri Stevens Estimated Blood Loss (ml): 200 IV fluids (ml): 1,200 Pathology: none sent Condition: stable Disposition: PACU Indications for Procedure: I had a long discussion with the patient in the office on the potential risks and complications of an elective total hip replacement through a direct anterior approach. Risks discussed include, but are certainly not limited to, risks from anesthesia, superficial infection requiring local wound care or antibiotics, deep mayank-prosthetic joint infection and the treatment required to eradicate infection, intraoperative fracture, postoperative periprosthetic fracture, damage to local blood vessels or nerves particularly the lateral femoral cutaneous nerve, delayed wound healing requiring local wound care or possibly surgical debridement, hip dislocation, leg length discrepancy, soft tissue irritation around the total hip implant such as iliopsoas tendinitis or trochanteric bursitis, wear and osteolysis from the implants, squeaking or audible noises, groin pain, thigh pain, heterotopic ossification, stiffness, aseptic loosening of the implants, dissatisfaction with surgical outcome, need for revision surgery, DVT, PE, swelling of the operative extremity, acute coronary event, stroke, failure to thrive, and possibly loss of life or limb. The patient understands that while these are the most common complications after an elective hip replacement there are certainly other less common complications possible. They were given ample time to ask questions regarding the potential complications of a hip replacement. Following our discussion the patient provided their verbal and written consent to go forward with an elective total hip replacement. Operative Findings: There were severe degenerative changes in both the left femoral head and acetabulum. Description of Procedure: The patient was identified in the preoperative holding area and the correct hip was marked with my initials. I reviewed the procedure and consent with the patient. All of their questions were answered. The patient was then brought back into the operating room by anesthesia. While on the [facility] anesthesia was administered by the anesthesia team. Preoperative antibiotics and tranexamic acid were also given. After the patient was under anesthesia I examined their ankles to determine their preoperative leg length discrepancy. The skin over the anterior aspect of the hip was shaved to remove hair over the site of planned incision. Both feet and ankles were padded with webril and boots for the [place] were applied. The patient was then carefully transferred onto the Phoenix table. A perineal post was immediately placed. The arms were placed on arm holders and were well-padded. Both boots were secured to the spars on the Phoenix table. The patient was positioned so that the pelvis was centered over the post. Nonsterile drapes were applied. A timeout was performed identifying the correct patient, operative extremity, and procedure. At this point fluoroscopy was brought in to take preoperative images of the pelvis and operative hip. Using the standing AP pelvis from the office as a template, a comparable image was obtained with fluoroscopy. A metallic bar was used to create a bi-ischial line for use as a reference to leg length adjustments during the procedure. Global offset was also measured on both the operative and nonoperative leg. Fluoroscopy was then brought out and a pre-scrub using a chlorhexidine scrub brush was performed. The operative limb was then prepped and draped in the standard sterile fashion. An anterior longitudinal incision was made lateral and distal to the ASIS. The skin and subcutaneous tissues were incised sharply. The underlying tensor fascia was identified and incised in its midportion. The fascia was dissected free from the underlying muscle and the muscle belly was retracted. A blunt tipped cobra retractor was placed over the superior neck under the muscle fibers of the gluteus minimus. The deep enveloping fascia of the tensor was incised. The anterior leash of vessels were then identified and cauterized. The fascia between the rectus and the capsule was then incised and the pre-capsular fat was excised. A second Cobra was placed inferior to the neck. The interval between the rectus and iliocapsularis and the hip capsule was developed and a retractor was placed carefully over the anterior rim of the acetabulum. A T-shaped anterior capsulotomy was performed. The superior capsular leaflet was left in place in the inferior capsular flap was excised. The Cobra retractors were placed intracapsularly. We then made a femoral neck osteotomy according to preoperative and intraoperative templating and confirmed the level of the osteotomy using fluoroscopic imaging. The femoral head was removed, passed off to the back table, and sized. The superior capsular flap was excised. Retractors were placed circumferentially exposing the acetabulum. We then circumferentially debrided the acetabulum free of labrum and osteophytes. The pulvinar was removed to fully visualize the cotyloid fossa. We then sequentially reamed to achieve peripheral fit and excellent bleeding subchondral bone. The socket was thoroughly irrigated. The acetabular component was impacted into the appropriate position using fluoroscopy to guide version, inclination, and depth of insertion taking care to have a comparable image of the AP pelvis to the standing image taken in the office. An excellent press-fit was achieved and final position was confirmed using fluoroscopy. The press fit was augmented with bony cancellus dome screws. The liner was then impacted into the socket. Attention was then turned to the femur. The remnant dorsal lateral capsule was excised. The short external rotators were visible and protected. A bone hook was used to confirm appropriate translation of the trochanter away from the acetabulum. The leg was then extended and adducted and the bone hook was used to elevate the femur for broaching. On inspection of the patient's proximal femur, they appeared to have poor bone quality so I elected to proceed with cemented fixation of the femoral component. A box osteotome and blunt tipped canal sound was then utilized to gain access to the femoral canal. We then sequentially broached the femur in appropriate anteversion until torsional stability was achieved and the implant was felt to have reached the appropriate size to allow trialing. The neck cut was brought flush to the trial broach with a calcar planar. A trial neck and head were then placed onto the broach and the hip was atraumatically reduced under direct visualization. External rotation to 90 was performed to assess stability. Fluoroscopy was brought in. An AP and lateral fluoroscopic image of the proximal femur was obtained to assess position and fill of the trial broach. An AP of the pelvis was then obtained and matched to the preoperative image taken. A bi-ischial bar was then placed and measurements were taken to assess changes in length and offset. The hip was then carefully dislocated, the proximal femur was exposed, and the trial implants were removed. The proximal femur was then prepared for cementing. The canal was thoroughly irrigated with pulsatile lavage to remove blood and marrow contents. A cement restrictor was placed to a depth just distal to the tip of the final implant. Epinephrine-soaked gauze was then packed into the proximal femur. 2 bags of cement were then mixed using a centrifuge and placed into a cement gun. Anesthesia was notified that cementing was about to commence to make sure the patient was appropriately ventilated and hydrated. Once the cement had reached appropriate consistency, the cement gun was used to fill the canal in a retrograde fashion starting at the restrictor. Cement was then pressurized into the canal with a blue tipped utility sales representative. The stem was then carefully introduced into the cement taking care to guide the implant into appropriate version. The stem was held in position until the cement had fully set. All extra cement was removed while the cement was hardening. The trunnion was cleansed and the final head was tapped into place to engage the Lyman taper. The acetabulum was irrigated and visualized to be free of debris. The hip was carefully reduced. Stability was checked clinically with external rotation to 90 and there was no evidence of instability. Final fluoroscopic images were taken. The wound was then thoroughly irrigated and soaked with a dilute Betadine rinse for 3 minutes. 3 L of sterile saline was irrigated through the wound using pulsatile lavage. Local anesthetic cocktail was injected into the soft tissues around the surgical field. A deep drain was placed. The wound was then closed in layers. A sterile dressing was placed over the surgical incision and drain site. The drapes were taken down and the patient was carefully transferred off of the Phoenix table. Following removal of the boots the leg lengths felt acceptable. The patient was then taken to recovery room having tolerated the procedure well. Demetri Stevens PA-C was required as a skilled chiropractor assistant for patient positioning, surgical exposure, retraction, placement of implants, and closure of the surgical wound. PLAN: The patient can weight-bear as tolerated on the operative extremity. 2 doses of postoperative antibiotics. DVT prophylaxis with aspirin 81 mg twice a day based on preoperative risk stratification. Physical therapy for gait training. Discontinue drain postoperative day #1 if output is less than 100 mL per shift.
[2022-02-05] MEDS ORDERED: HYDROmorphone 0.5 MG/0.5 ML SYRINGE IVP ONE (17:58)
--- NOTE | 2022-02-05 20:18 | XR ---
EXAMINATION TYPE: XR Hip Limited LT DATE OF EXAM: 02/05/2022 COMPARISON: NONE HISTORY: Hip surgery TECHNIQUE: FINDINGS: 36 seconds of fluoroscopy time was recorded. Fluoroscopic images were obtained and show chaya cement of a left total hip prosthesis. Components appear in good position. IMPRESSION: No complicating process.
[2022-02-05] MEDS: ASPIRIN 81 MG PO SCH (20:34)
[2022-02-05] MEDS ORDERED: SENNOSIDES-DOCUSATE SODIUM 1 EACH TAB PO SCH (21:00)
[2022-02-05] MEDS: HYDROcodone/APAP 5-325MG 1 EACH TAB PO PRN (21:12)
[2022-02-06 07:25] VITALS: BP 98/58; PULSE 69; RESP 18; TEMP 98.2
[2022-02-06] MEDS: HYDROcodone/APAP 5-325MG 1 EACH TAB PO PRN ×2 (07:47→13:15)
[2022-02-06] MEDS: ASPIRIN 81 MG PO SCH (07:48)
[2022-02-06] MEDS: LACTATED RINGERS 1,000 ML IV SCH (08:14)
--- NOTE | 2022-02-06 09:25 | P.DS ---
Providers Expected date of discharge: 02/06/22 Attending physician: Jayden Ramirez Consults: 02/05/22 17:34 Consult Physician Routine Consulting Provider: Irena Cuellar Consult Reason/Comments: medical management Do you want consulting provider notified?: Yes Primary care physician: Mayra Cm [facility] Course: This is a 71-year-old female who has been followed in our office by Dr. Ramirez for continued complaints of left hip pain due to left hip osteoarthritis. Treatment options were discussed, and patient elected to undergo a left total hip arthroplasty. Patient was seen pre-operatively by Dr. Mayra Cm and cleared for surgery. Patient underwent a direct anterior left total hip arthroplasty on 02/05/22. The procedure was performed without complication or sequelae. The patient is doing fairly well postoperatively. Vital signs and labs are stable on postoperative day #1. Patient was examined bedside today. Patient states she is overall doing very well and the pain in her left hip is well-controlled. Hemovac drain removed bedside this morning. She has been ambulating with a walker with minimal assistance. She has worked with physical therapy this morning. Patient is tolerating her breakfast well. She is voiding with issues. Patient is comfortable being discharged home today. Patient denies chest pain, shortness of breath, nausea, vomiting, fevers, chills. On examination, the patient is sitting up in the bedside chair in no apparent distress. She is alert and orientated 3. On inspection of the left hip, there is a clean, dry, intact Opsite surgical dressing in place. There is no bleeding or drainage the dressing. Patient has good strength and ROM of the left ankle and toes. Motor and sensory function is intact of the left lower extremity. The dorsalis pedis pulse is easily palpable, the left lower extremity is warm and well perfused with brisk capillary refill. Calf is soft and non-tender to palpation. Patient is discharged home with home health in good condition, pending medical clearance. Patient will follow-up with Dr. Ramirez in the office in 2 weeks. Please see med rec for accurate list of discharge medication. Plan - Discharge Summary Discharge Rx Participant: Yes New Discharge Prescriptions: New Aspirin 81 mg PO BID 30 Days #60 tab Docusate [Colace] 100 mg PO BID #60 capsule HYDROcodone/APAP 5-325MG [[place] 5-325] 1 - 2 tab PO Q6HR PRN 7 Days #40 tab PRN Reason: Pain Omeprazole 40 mg PO DAILY 30 Days #30 cap Diclofenac Sodium [Voltaren] 75 mg PO BID 30 Days #60 tab No Action guaiFENesin-Coden 100-10MG/5ML [Robitussin AC] 10 ml PO HS PRN PRN Reason: Cough Discharge Medication List guaiFENesin-Coden 100-10MG/5ML [Robitussin AC] 10 ml PO HS PRN 02/03/22 [History] Aspirin 81 mg PO BID 30 Days #60 tab 02/06/22 [Rx] Diclofenac Sodium [Voltaren] 75 mg PO BID 30 Days #60 tab 02/06/22 [Rx] Docusate [Colace] 100 mg PO BID #60 capsule 02/06/22 [Rx] HYDROcodone/APAP 5-325MG [[place] 5-325] 1 - 2 tab PO Q6HR PRN 7 Days #40 tab 02/06/22 [Rx] Omeprazole 40 mg PO DAILY 30 Days #30 cap 02/06/22 [Rx] Follow up Appointment(s)/Referral(s): Jayden Ramirez MD [Medical Doctor] - 2 Weeks Activity/Diet/Wound Care/Special Instructions: Weight bear as tolerated on operative extremity with a walker. Keep operative dressing intact until follow-up appointment in the office. Call the office if dressing becomes saturated or falls off. Take pain medications as prescribed. Take aspirin 81mg BID x 4 weeks for blood clot prevention. Follow-up in the office in two weeks with Dr. Ramirez. Call the office with any questions or concerns, Discharge Disposition: HOME WITH HOME HEALTH SERVICES
[2022-02-06 09:26] LABS: Basophils # (A) 0.01 X 10*3/uL (0.00-0.10); Basophils % (A) 0.1 %; Eosinophils # (A) 0.01 X 10*3/uL (0.04-0.35); Eosinophils % (A) 0.1 %; HCT 30.5 % (37.2-46.3); HGB 10.1 g/dL (12.0-15.0); Immature Grans, Automated 0.5 %; Lymphocytes # (A) 1.17 X 10*3/uL (0.90-5.00); Lymphocytes % (A) 13.3 %; MCH 29.5 pg (27.0-32.0); MCHC 33.1 g/dL (32.0-37.0); MCV 89.2 fL (80.0-97.0); Mean Platelet Volume 11.1 fL (9.5-12.2); Monocytes # (A) 0.96 X 10*3/uL (0.20-1.00); Monocytes % (A) 10.9 %; NRBC Per 100 WBC 0 /100 WBCS (0.0-0.0); Neutrophils # (A) 6.59 X 10*3/uL (1.80-7.70); Neutrophils % (A) 75.1 %; Platelet Count 160 X 10*3/uL (140-440); RBC 3.42 X 10*6/uL (4.10-5.20); RDW 12.6 % (11.5-14.5); WBC 8.78 X 10*3/uL (4.50-10.00)
--- NOTE | 2022-02-06 19:50 | P.CONS ---
History of Present Illness - History of Present Illness This is a pleasant 71 years old female with past medical history of severe os teoarthritis and constipation. Was admitted for her osteoarthritic problem and she underwent left total hip arthroplasty. Today is postoperative day #1. Patient was seen sitting at bedside ready to start her physical therapy training with physical therapy and occupational therapy team, she was pleasant, she has mild pain at her surgery site. No other physical complaints. She denies chest pain or dyspnea. No change in urine or bowel habits. She is passing gas but no bowel movement. As she has known case of constipation. No urinary complaints. No dizziness weakness or numbness. She is hemodynamically stable. hemoglobin is 10.1, WBC 8.7, platelet count 160. Review of Systems CONSTITUTIONAL: No fever, no malaise, no fatigue. HEENT: No recent visual problems or hearing problems. Denied any sore throat. CARDIOVASCULAR: No orthopnea, PND, no palpitations, no syncope. PULMONARY: No shortness of breath, no cough, no hemoptysis. GASTROINTESTINAL: No diarrhea, no nausea, no vomiting, no abdominal pain. Normoactive bowel sounds. NEUROLOGICAL: No headaches, no weakness, no numbness. HEMATOLOGICAL: Denies any bleeding or petechiae. GENITOURINARY: Denies any burning micturition, frequency, or urgency. MUSCULOSKELETAL/RHEUMATOLOGICAL: Denies any joint pain, swelling, or any muscle pain. ENDOCRINE: Denies any polyuria or polydipsia. Past Medical History Past Medical History: Osteoarthritis (OA) Additional Past Medical History / Comment(s): Chronic sinus problems and history of osteopenia, History of Any Multi-Drug Resistant Organisms: None Reported Additional Past Surgical History / Comment(s): Sinus sugery. Colonoscopy 2013 (next after 10yrs). Past Anesthesia/Blood Transfusion Reactions: No Reported Reaction Past Psychological History: No Psychological Hx Reported Smoking Status: Never smoker Past Alcohol Use History: Daily Additional Past Alcohol Use History / Comment(s): GLASS OF WINE DAILY Past Drug Use History: None Reported - Past Family History Father Family Medical History: Cancer, Renal Disease Additional Family Medical History / Comment(s): Renal cancer. DIALYSIS Mother Family Medical History: Congestive Heart Failure (CHF) Additional Family Medical History / Comment(s): Maternal aunt had breast cancer. Medications and Allergies Home Medications Medication Instructions Recorded Confirmed Type guaiFENesin-Coden 100-10MG/5ML 10 ml PO HS PRN 02/03/22 02/05/22 History [Robitussin AC] Aspirin 81 mg PO BID 30 Days #60 tab 02/06/22 Rx Diclofenac Sodium [Voltaren] 75 mg PO BID 30 Days #60 tab 02/06/22 Rx Docusate [Colace] 100 mg PO BID #60 capsule 02/06/22 Rx HYDROcodone/APAP 5-325MG [[place] 1 - 2 tab PO Q6HR PRN 7 Days #40 02/06/22 Rx 5-325] tab Omeprazole 40 mg PO DAILY 30 Days #30 cap 02/06/22 Rx Allergies Allergy/AdvReac Type Severity Reaction Status Date / Time Penicillins Allergy Rash/Hives Verified 02/05/22 14:38 nickel AdvReac Rash/Hives Verified 02/05/22 14:38 Physical Exam Vitals: Vital Signs Temp Pulse Resp BP Pulse Ox 02/06/22 07:23 98.2 F 69 18 98/58 100 02/06/22 00:47 97.7 F 60 16 112/63 98 02/05/22 21:15 79 142/83 95 02/05/22 20:33 76 152/74 99 02/05/22 20:17 71 152/76 95 02/05/22 20:02 79 144/78 97 02/05/22 19:47 75 154/86 95 02/05/22 19:32 86 147/85 96 02/05/22 19:17 62 142/83 97 02/05/22 18:24 81 18 132/65 95 02/05/22 18:09 67 20 124/62 98 02/05/22 17:54 56 L 16 123/56 100 02/05/22 17:37 97.2 F L 87 12 149/64 98 02/05/22 14:38 97.8 F 90 16 161/83 98 Intake and Output 02/05/22 02/06/22 02/06/22 22:59 06:59 14:59 Intake Total 1850 Output Total 510 730 Balance 1340 -730 Intake: IV 1600 Oral 250 Output: Drainage 60 80 Left Anterior Lateral Hip 60 80 Urine 250 650 Estimated Blood Loss 200 Other: # Voids 1 Weight 60.5 kg GENERAL: The patient is alert and oriented x3, not in any acute distress. Well developed, well nourished. HEENT: Pupils are round and equally reacting to light. EOMI. No scleral icterus. No conjunctival pallor. Normocephalic, atraumatic. No pharyngeal erythema. No thyromegaly. CARDIOVASCULAR: S1 and S2 present. No murmurs, rubs, or gallops. PULMONARY: Chest is clear to auscultation, no wheezing or crackles. ABDOMEN: Soft, nontender, nondistended, normoactive bowel sounds. No palpable organomegaly. MUSCULOSKELETAL: No joint swelling or deformity. -EXTREMITIES: No cyanosis, clubbing, or pedal edema. Left hip wound is closed and healing NEUROLOGICAL: Gross neurological examination did not reveal any focal deficits. SKIN: No rashes. No petechiae Results CBC & Chem 7: 02/06/22 05:58 Labs: Abnormal Lab Results - Last 24 Hours (Table) 02/06/22 Range/Units 05:58 RBC 3.42 L (4.10-5.20) X 10*6/uL Hgb 10.1 L (12.0-15.0) g/dL Hct 30.5 L (37.2-46.3) % Eosinophils # 0.01 L (0.04-0.35) X 10*3/uL Assessment and Plan Assessment: Severe osteoarthritis status post left hip total arthroplasty. 2 days' postop day #1 Constipation Plan: This is a pleasant 71 years old female who presents for left hip replacement surgery. She is looks comfortable Continue with pain management as per primary team Encourage ambulation with physical therapy Continue with DVT prophylaxis as per primary team Patient was encouraged to follow up with PCP Dr. Nunez in 1 week after discharge and she verbalized understanding and acceptance Thank you for consulting us
== END 2022-02-06 13:18 | disposition home health service (06) ==
LOC: OR 14:25 → 4SSUR 17:37 → OR 02-06 13:18
PROVIDERS: ATTEND Orthopaedic Surgery
DX: M16.12 Unilateral primary osteoarthritis, left hip (principal); M81.0 Age-related osteoporosis without current pathological fracture; M85.80 Other specified disorders of bone density and structure, unspecified site; Z88.0 Allergy status to penicillin; Z88.8 Allergy status to other drugs, medicaments and biological substances; Z82.49 Family history of ischemic heart disease and other diseases of the circulatory system; Z80.3 Family history of malignant neoplasm of breast; Z80.0 Family history of malignant neoplasm of digestive organs
CPT/HCPCS: 97161; 97165; 85025; 88300; 73501; 27130; C1776; C1713; J2250; J1100; J2710; J0690 ×2; J2405; J3010; J1170 ×3; J1885; J2370; J0330; J2704; J2001; 86850; 86900; 86901

== ENCOUNTER → 2024-03-07 | Outpatient (CLI) | payer MEDICARE ==
--- NOTE | 2024-03-08 13:10 | MM ---
Reason for Exam: Screening (asymptomatic). Last screening mammogram was performed 12 month(s) ago. Patient History: Menarche at age 11. First Full-Term at age 29. Late child-bearing (after 29). Postmenopausal. Hormonal Contraceptives for 5 years from age 19 until age 24. Maternal aunt had breast cancer, age 55. Risk Values: Pallavi 5 year model risk: 2.4%. NCI Lifetime model risk: 5.6%. Prior Study Comparison: 08/08/2020 Bilateral Screening Mammogram, [facility]. 09/17/2021 Bilateral Screening Mammogram, [facility]. 03/06/2023 Bilateral MG 3D screening mammo w/cad, [facility]. Tissue Density: The breasts are heterogeneously dense, which may obscure small masses. Findings: Analyzed By CAD. Asymmetric density outer left breast 6.6 cm from the nipple. Additional views are recommended to include a spot compression CC and true lateral view of the left breast. No suspicious calcifications within either breast. Overall Assessment: Incomplete: need additional imaging evaluation, BI-RAD 0 Management: Diagnostic Mammogram of the left breast. . Patient should continue monthly self-breast exams. A clinical breast exam by your physician is recommended on an annual basis. This exam should not preclude additional follow-up of suspicious palpable abnormalities. Note on Pallavi scores and lifetime risk: 1. A Pallavi score greater than 3% is considered moderate risk. If this is the case, consider specialist referral to assess eligibility for a risk reducing agent. 2. If overall lifetime risk for the development of breast cancer is 20% or higher, the patient may qualify for future screening with alternating mammogram and breast MRI. Electronically signed and approved by: Keith Tesfaye M.D. Radiologis
== END | disposition home or self-care (01) ==
LOC: RADMAMWWP 11:02
PROVIDERS: ATTEND Family Medicine
DX: Z12.31 Encounter for screening mammogram for malignant neoplasm of breast (principal); R92.333 Mammographic heterogeneous density, bilateral breasts; Z78.0 Asymptomatic menopausal state; Z80.3 Family history of malignant neoplasm of breast
CPT/HCPCS: 77063; 77067

== ENCOUNTER → 2024-03-14 | Outpatient (CLI) | payer MEDICARE ==
--- NOTE | 2024-03-14 10:12 | MM ---
Reason for Exam: Additional evaluation requested from abnormal screening. Last screening mammogram was performed less than 1 month ago. Patient History: Menarche at age 11. First Full-Term at age 29. Late child-bearing (after 30). Postmenopausal. Hormonal Contraceptives for 5 years from age 19 until age 24. Maternal aunt had breast cancer, age 55. Risk Values: Pallavi 5 year model risk: 2.4%. NCI Lifetime model risk: 5.6%. Prior Study Comparison: 09/17/2021 Bilateral Screening Mammogram, [facility]. 03/06/2023 Bilateral MG 3D screening mammo w/cad, [facility]. 03/07/2024 Bilateral MG 3D screening mammo w/cad, [facility]. Tissue Density: Left: The breasts are heterogeneously dense, which may obscure small masses. Findings: Analyzed By CAD. No evidence for persistent density upon additional spot compression imaging. No masses seen. Overall Assessment: Negative, BI-RAD 1 Management: Screening Mammogram of both breasts in 1 year. . Results were given to the patient verbally at the time of exam. Patient should continue monthly self-breast exams. A clinical breast exam by your physician is recommended on an annual basis. This exam should not preclude additional follow-up of suspicious palpable abnormalities. Note on Pallavi scores and lifetime risk: 1. A Pallavi score greater than 3% is considered moderate risk. If this is the case, consider specialist referral to assess eligibility for a risk reducing agent. 2. If overall lifetime risk for the development of breast cancer is 20% or higher, the patient may qualify for future screening with alternating mammogram and breast MRI. Electronically signed and approved by: eKith Tesfaye M.D. Radiologis
== END | disposition home or self-care (01) ==
LOC: RADMAMWWP 09:46
PROVIDERS: ATTEND Family Medicine
DX: R92.332 Mammographic heterogeneous density, left breast (principal); R92.8 Other abnormal and inconclusive findings on diagnostic imaging of breast; Z78.0 Asymptomatic menopausal state; Z80.3 Family history of malignant neoplasm of breast
CPT/HCPCS: 77065; G0279; 77061

== ENCOUNTER → 2024-03-14 | Outpatient (CLI) | payer MEDICARE ==
--- NOTE | 2024-03-14 12:11 | BD ---
EXAMINATION TYPE: Axial Bone Density DATE OF EXAM: 03/14/2024 CLINICAL HISTORY: 73 years old Female. ICD-10 CODE: Z78.0 ASYMPTOMATIC MENOPAUSAL STATE Height: 66 Weight: 138.4 FRAX RISK QUESTIONS: Alcohol (3 or more units per day): no Family History (Parent hip fracture): yes Glucocorticoids (More than 3mos): no (Ex: prednisone, prednisolone, methylprednisolone, dexamethasone, and hydrocortisone). History of Fracture in Adulthood: no Secondary Osteoporosis: 1. Type 1 Diabetes: no 2. Hyperthyroidism: no 3. Menopause before 45: no 4. Malnutrition: no 5. Chronic liver disease: no Rheumatoid Arthritis: no Current Tobacco Use: no RISK FACTORS HISTORY OF: Surgery to Spine/Hip(right/left)/Wrist (right/left): left hip replaced When: 2021 EXAM MEASUREMENTS: Bone mineral densitometry was performed using the [employer] System. Bone mineral density as measured about the Lumbar spine is: ----- L1-L4(G/cm2): 0.916 T Score Values are as follows: ----- L1: -3.0 ----- L2: -3.1 ----- L3: -2.1 ----- L4: -0.7 ----- L1-L4: -2.2 Z Score Values are as follows: ----- L1: -1.2 ----- L2: -1.3 ----- L3: -0.3 ----- L4: 1.2 ----- L1-L4: -0.4 Bone mineral density has: increased 0.5 % since study of: 09.17.2021 Bone mineral density about the R hip (g/cm2): 0.739 T Score values are as follows: -----R Neck: -1.9 -----R Total: -2.1 Z Score values are as follows: -----R Neck: 0.0 -----R Total: -0.4 Bone mineral density has: decreased -3.7 % since study of: 09.17.2021 FRAX%s: The graph provided illustrates a 20.7% chance for a major osteoporotic fx and a 11.3% chance for the hips probability for fx in 10 years time. IMPRESSION: Osteopenia (T Score between -2.5 and -1). There is slightly increased risk of fracture and the patient may be considered for treatment. Re-Screen 2-5 years. NOTE: T-SCORE=SD OF THE YOUNG ADULT MEAN.
== END | disposition home or self-care (01) ==
LOC: RADBDWWP 09:42
PROVIDERS: ATTEND Family Medicine
DX: Z13.820 Encounter for screening for osteoporosis (principal); M81.0 Age-related osteoporosis without current pathological fracture; M85.89 Other specified disorders of bone density and structure, multiple sites; Z78.0 Asymptomatic menopausal state
CPT/HCPCS: 77080

== ENCOUNTER → 2025-03-15 | Outpatient (CLI) | payer MEDICARE ==
--- NOTE | 2025-03-15 16:12 | MM ---
Reason for Exam: Screening (asymptomatic). Last screening mammogram was performed 12 month(s) ago. Patient History: Menarche at age 11. First Full-Term at age 29. Late child-bearing (after 30). Postmenopausal. Hormonal Contraceptives for 5 years from age 19 until age 24. Maternal aunt had breast cancer, age 55. Risk Values: Pallavi 5 year model risk: 2.4%. NCI Lifetime model risk: 5.3%. Prior Study Comparison: 03/06/2023 Bilateral MG 3D screening mammo w/cad, [facility]. 03/07/2024 Bilateral MG 3D screening mammo w/cad, [facility]. 03/14/2024 Left MG 3D work up w/cad , [facility]. Tissue Density: The breasts are heterogeneously dense, which may obscure small masses. Findings: Analyzed By CAD. There is no suspicious group of microcalcifications or new suspicious mass in either breast. Overall Assessment: Negative, BI-RAD 1 Management: Screening Mammogram of both breasts in 1 year. Patient should continue monthly self-breast exams. A clinical breast exam by your physician is recommended on an annual basis. This exam should not preclude additional follow-up of suspicious palpable abnormalities. Note on Pallavi scores and lifetime risk: 1. A Pallavi score greater than 3% is considered moderate risk. If this is the case, consider specialist referral to assess eligibility for a risk reducing agent. 2. If overall lifetime risk for the development of breast cancer is 20% or higher, the patient may qualify for future screening with alternating mammogram and breast MRI. [facility], , 03/15/2025 4:09 PM. Electronically signed and approved by: Hill Ball M.D. Radiologist
== END | disposition home or self-care (01) ==
LOC: RADMAMWWP 09:46
PROVIDERS: ATTEND Family Medicine
DX: Z12.31 Encounter for screening mammogram for malignant neoplasm of breast (principal); R92.333 Mammographic heterogeneous density, bilateral breasts; Z78.0 Asymptomatic menopausal state; Z80.3 Family history of malignant neoplasm of breast; Z92.0 Personal history of contraception
CPT/HCPCS: 77063; 77067